=== PATIENT | female | born 1965 | race Caucasian/White ===

== ENCOUNTER 2016-07-03 10:09 | Emergency (ER) | payer BC ==
[~2016-07-03] VITALS: Ht 175.3 cm; Wt 74.0 kg
[2016-07-03 10:17] VITALS: BP 178/66; PULSE 100; RESP 15; O2SAT 100
[2016-07-03 10:20] VITALS: O2SAT 100
[2016-07-03] MEDS ORDERED: LAMO150 PO (10:27)
[2016-07-03 11:02] VITALS: BP 119/73; PULSE 60; RESP 16; O2SAT 100
[2016-07-03 11:05] LABS: BLOOD, URINE TRACE (NEG); GLUCOSE,URINE NEG (NEG); KETONE, URINE NEG (NEG); NITRITE,URINE NEG (NEG)
[2016-07-03 11:11] LABS: METHOD OF COLLECTION CLEAN CATCH; RBC, URINE 0-3 /hpf (0-3); SQUAMOUS EPITHELIAL CELL URINE 0-5 /hpf (0-5); URINE COLOR YELLOW (YELLW/STRAW)
[2016-07-03 11:13] LABS: AMPHETAMINE, URINE NEG (NEG); BARBITURATES, URINE NEG (NEG)
[2016-07-03 11:14] LABS: COCAINE, URINE NEG (NEG)
[2016-07-03 11:45] LABS: AUTOMATED NEUTROPHIL # 2.6 TH/MM3 (1.8-7.7); BASOPHIL % 0.5 % (0.0-2.0); EOSINOPHIL % 0.7 % (0.0-4.0); HEMATOCRIT 38.4 % (35.0-46.0); HEMO FLAGS DIFF FINAL; LYMPH % 30.7 % (9.0-44.0); LYMPHOCYTE # 1.4 TH/MM3 (1.0-4.8); MEAN CELL VOLUME 93.4 FL (80.0-100.0); MEAN CORPUSCULAR HEMOGLOBIN 31.7 PG (27.0-34.0); MEAN CORPUSCULAR HGB CONC 33.9 % (32.0-36.0); MONO % 9.2 % (0.0-8.0); NEUT % 58.9 % (16.0-70.0); PLATELET COUNT 226 TH/MM3 (150-450); RED BLOOD COUNT 4.11 MIL/MM3 (4.00-5.30); RED CELL DISTRIBUTION WIDTH 12.8 % (11.6-17.2); WHITE BLOOD COUNT 4.4 TH/MM3 (4.0-11.0)
[2016-07-03 11:51] VITALS: BP 119/70; PULSE 62; RESP 16; O2SAT 100
[2016-07-03 11:57] LABS: CHLORIDE 106 MEQ/L (98-107); POTASSIUM 4.1 MEQ/L (3.5-5.1); SODIUM (NA) 143 MEQ/L (136-145)
[2016-07-03 12:00] LABS: ANION GAP 8 MEQ/L (5-15); BICARBONATE 28.6 MEQ/L (21.0-32.0); BLOOD UREA NITROGEN 14 MG/DL (7-18)
[2016-07-03 12:03] LABS: GLOMERULAR FILTRATION RATE 71 ML/MIN (>89)
--- NOTE | 2016-07-03 12:25 | PD ---
HPI Chief Complaint: Seizure Time Seen by Provider: 10:15 Travel History International Travel<30 days: No Contact w/Intl Traveler<30days: No Traveled to known affect area: No History of Present Illness HPI 51-year-old female arrives by EMS. She had a generalized clonic tonic seizure at work. Lasted about 3 minutes. She was postictal when EMS arrived. They note blood pressure is 132/80 in the pulse was about 70 and the patient was 100 % on room air with a blood glucose of 83. She takes Lamictal and has been compliant with that. En route to the ER the patient became alert and oriented 3 with a GCS of 15. She was recently diagnosed with urinary tract infection and has been compliant with Bactrim. [facility] Past Medical History Diminished Hearing: No Seizures: Yes Tetanus Vaccination: Unknown Influenza Vaccination: No ?: Not Past Surgical History Hysterectomy: Yes Social History Alcohol Use: No Tobacco Use: No Substance Use: No Allergies-Medications (Allergen,Severity, Reaction): Coded Allergies: No Known Allergies (Unverified , 07/03/16) Reported Meds & Prescriptions Reported Meds & Active Scripts Active Reported Lamictal (Lamotrigine) 150 Mg Tab 150 Mg PO BID Review of Systems Except as stated in HPI: all other systems reviewed are Neg Physical Exam Narrative GENERAL: Well-nourished well-developed 51-year-old female no acute distress speaking full sentences SKIN: Warm and dry. HEAD: Atraumatic. Normocephalic. EYES: Pupils equal and round. No scleral icterus. No injection or drainage. ENT: No nasal bleeding or discharge. Mucous membranes pink and moist. NECK: Trachea midline. No JVD. CARDIOVASCULAR: Regular rate and rhythm. RESPIRATORY: No accessory muscle use. Clear to auscultation. Breath sounds equal bilaterally. GASTROINTESTINAL: Abdomen soft, non-tender, nondistended. Hepatic and splenic margins not palpable. MUSCULOSKELETAL: Extremities without clubbing, cyanosis, or edema. No obvious deformities. NEUROLOGICAL: Awake and alert. No obvious cranial nerve deficits. Motor grossly within normal limits. Five out of 5 muscle strength in the arms and legs. Normal speech. PSYCHIATRIC: Appropriate mood and affect; insight and judgment normal. Data Data Last Documented VS Vital Signs Date Time Temp Pulse Resp B/P Pulse Ox O2 Delivery O2 Flow Rate FiO2 07/03/16 11:51 Room Air 07/03/16 11:51 62 16 119/70 100 VS reviewed, pt afebrile Orders Complete Blood Count With Diff (07/03/16 10:15) Basic Metabolic Panel (Bmp) (07/03/16 10:15) Alcohol (Ethanol) (07/03/16 10:15) Drug Screen, Random Urine (07/03/16 10:15) Electrocardiogram (07/03/16 ) Ecg Monitoring (07/03/16 10:15) Iv Access Insert/Monitor (07/03/16 10:15) Oximetry (07/03/16 10:15) Ua Includes Microscopic (07/03/16 10:15) Lactic Acid (07/03/16 11:29) Labs Laboratory Tests Test 07/03/16 07/03/16 11:00 11:30 Urine Collection Type CLEAN CATCH Urine Color YELLOW Urine Turbidity CLEAR Urine pH 6.0 Urine Specific [place] 1.012 Urine Protein NEG mg/dL Urine Glucose (UA) NEG mg/dL Urine Ketones NEG mg/dL Urine Occult Blood TRACE Urine Nitrite NEG Urine Bilirubin NEG Urine Leukocyte Esterase NEG Urine RBC 0-3 /hpf Urine Squamous Epithelial 0-5 /hpf Cells Urine Collection Time 11:00 Urine Opiates Screen NEG Urine Barbiturates Screen NEG Urine Amphetamines Screen NEG Urine Benzodiazepines Screen NEG Urine Cocaine Screen NEG Urine Cannabinoids Screen NEG White Blood Count 4.4 TH/MM3 Red Blood Count 4.11 MIL/MM3 Hemoglobin 13.0 GM/DL Hematocrit 38.4 % Mean Corpuscular Volume 93.4 FL Mean Corpuscular Hemoglobin 31.7 PG Mean Corpuscular Hemoglobin 33.9 % Concent Red Cell Distribution Width 12.8 % Platelet Count 226 TH/MM3 Mean Platelet Volume 8.5 FL Neutrophils (%) (Auto) 58.9 % Lymphocytes (%) (Auto) 30.7 % Monocytes (%) (Auto) 9.2 % Eosinophils (%) (Auto) 0.7 % Basophils (%) (Auto) 0.5 % Neutrophils # (Auto) 2.6 TH/MM3 Lymphocytes # (Auto) 1.4 TH/MM3 Monocytes # (Auto) 0.4 TH/MM3 Eosinophils # (Auto) 0.0 TH/MM3 Basophils # (Auto) 0.0 TH/MM3 CBC Comment DIFF FINAL Differential Comment Sodium Level 143 MEQ/L Potassium Level 4.1 MEQ/L Chloride Level 106 MEQ/L Carbon Dioxide Level 28.6 MEQ/L Anion Gap 8 MEQ/L Blood Urea Nitrogen 14 MG/DL Creatinine 0.85 MG/DL Estimat Glomerular Filtration 71 ML/MIN Rate Random Glucose 94 MG/DL Lactic Acid Level 0.8 mmol/L Calcium Level 8.9 MG/DL Ethyl Alcohol Level LESS THAN 3 MG/DL MDM Medical Decision Making Medical Screen Exam Complete: Yes Emergency Medical Condition: Yes Medical Record Reviewed: Yes Differential Diagnosis Seizure, medication noncompliance, infection, metabolic abnormality, pseudoseizure Narrative Course The patient had a fairly atypical seizure-like event upon arriving to the ER. She received 1 mg of Ativan at about the same time the seizure ended. It started about 5 minutes after her arrival and lasted about 30 seconds or so. The patient slapped her hand on the thigh rolled arrives towards her head. She has been ambulating in the ER and in no distress since the seizure episode ended. Her workup reveals the following: CBC & BMP Diagram 07/03/16 11:30 Lactic acid 0.8 Toxicology panel negative Urinalysis shows no UTI Alcohol is less than 3 EKG reveals a sinus rhythm with a rate of 60 with normal axis and intervals Reassessment at 1225PM, the patient resting comfortably woke up briskly and without difficulty and was able to participate with reassessment, which was unremarkable. She is safe for discharge. Patient has a neurologist in [place] as well as a primary care provider there. She intends to switch providers to someone more locally. Contact information for the [facility] group has been provided. Pt agrees to make follow up appointment. Diagnosis Primary Impression: Seizure Referrals: Madelyn Tatum MD, Mandeep MD Scott, James A. PhD MD Additional Instructions: You have a choice when it comes to health care, and we are glad that you chose [facility]. Hopefully, we have met your expectations on today's visit. You are welcome to return to [facility] at any time, as we are committed to meeting the health care needs of our community. Med/Other Pt SpecificInfo: No Change to Meds Disposition: 01 DISCHARGE HOME Condition: Stable Ge Glaser MD Jul 03, 2016 12:25
[2016-07-03] MEDS ORDERED: LORazepam 2 MG/ML VIAL IV PUSH ONE (12:45)
--- NOTE | 2016-07-04 13:40 | EKG ---
Date Performed: 07/03/2016 Time Performed: 10:21:28 PTAGE: 51 years EKG: Sinus rhythm rSr'(V1) - probable normal variant Normal ECG NO PREVIOUS TRACING DOCTOR: Joey Strickland Interpretating Date/Time 07/04/2016 13:37:02
== END 2016-07-03 13:23 | disposition home or self-care (01) ==
LOC: PHED 10:09
DX: R56.9 Unspecified convulsions (principal); Z86.69 Personal history of other diseases of the nervous system and sense organs; Z87.440 Personal history of urinary (tract) infections
CPT/HCPCS: 80048; 80307; 81001; 83605; 85025; 93005; 96374; 99284; J2060